=== PATIENT | male | born 1995 | race Caucasian/White ===

== ENCOUNTER 2018-08-10 20:05 | Emergency (ER) | payer BC ==
--- NOTE | 2018-08-10 20:21 | ER Report ---
History and Physical Time Seen By MD: 20:21 Hx. of Stated Complaint: PATIENT WAS PLAYING FLAG FOOTBALL, WENT TO CATCH BALL AND CAUGHT IT WITH TIPS OF LEFT HAND JAMMING THEM AGAINST BALL. HPI/ROS CHIEF COMPLAINT: Hand injury HISTORY OF PRESENT ILLNESS: This is a 22-year-old male who presents to emergency department for a hand injury. Patient states that he was playing flight football just prior to arrival when he went to catch the ball and jammed his left index finger and at the ball. States he's had pain in the finger down in the palm since. No other deformities small amount of swelling. He states he has injured this finger before however is not needed surgery. CMS intact. No other complaints. Denies hitting his head. REVIEW OF SYSTEMS: Respiratory: No cough, no dyspnea. Cardiovascular: No chest pain, no palpitations. Gastrointestinal: No vomiting, no abdominal pain. Musculoskeletal: As above. Allergies: Coded Allergies: No Known Drug Allergies (Unverified , 08/10/18) Past Medical/Surgical History Patient has a past medical and surgical history of was some tooth extraction, hypertension, does not take medications, left knee surgery, right hand fracture. Reviewed Nurses Notes: Yes Constitutional Vital Sign - Last 24 Hours 08/10/18 20:12 Temp 98.9 Pulse 111 Resp 16 B/P (MAP) 168/89 Pulse Ox 92 O2 Delivery Room Air Physical Exam General Appearance: The patient is alert, has no immediate need for airway protection and no current signs of toxicity. Eyes: Pupils equal and round no injection. Respiratory: Chest is non tender, lungs are clear to auscultation. Cardiac: regular rate and rhythm. Gastrointestinal: Abdomen is soft and non tender, no masses, bowel sounds normal. Musculoskeletal: Neck: Neck is supple and non tender. Extremities Examination of the Left hand reveals no acute deformity. The patient is able to give a thumbs up sign, is able to make an okay sign, and is able to AB duct the fingers. Sensation is intact over the dorsal 1st web space, the volar aspect of the 2nd finger, and the volar aspect of the 5th finger. Capillary refill is brisk. Pain to the left index finger from the DIP into the palm. Skin: No rashes or lesions. DIFFERENTIAL DIAGNOSIS: After history and physical exam differential diagnosis was considered for contusion, fracture, dislocation. Medical Decision Making EKG/Imaging Imaging PATIENT NAME: Ed REEDER: 1995 MR: [id number] V: [id number] EXAM DATE: ORDERING PHYSICIAN: ISIAH ZUNIGA TECHNOLOGIST: Location: [facility] Patient: Ed Flores : 1995 Visit/Account:[id number] Date of Sevice: 08/10/2018 INDICATION: injured left index finger, pain into palm. DATE: 08/10/2018 9:55 PM. TECHNIQUE: HAND COMPLETE LEFT COMPARISON: None FINDINGS: Bony alignment is normal. No evidence of fracture or dislocation. IMPRESSION: No acute osseous abnormality. Report Dictated By: Juan Ma MD at 08/10/2018 9:55 PM Report E-Signed By: Juan Ma MD at 08/10/2018 9:56 PM WSN:[id number] ED Course/Re-evaluation ED Course The patient was admitted to room. A history and physical obtained. Differential diagnoses were considered. X-ray negative for any acute ST segment normality however I am concerned might be a small avulsion fracture I will have the patient follow-up with referral. Questionable small avulsion fx at the palmar side of the PIP joint of the middle phalanx, I did review this with the patient, I did splint the finger. He was instructed to keep the splint on until he follow up with Ortho. Take Ibuprofen or Tylenol as needed. He expressed understanding and was discharged home. Decision to Disposition Date: Aug 10, 2018 Decision to Disposition Time: 21:58 Depart Departure Latest Vital Signs Vital Signs Date Time Temp Pulse Resp B/P (MAP) Pulse Ox O2 Delivery O2 Flow Rate FiO2 08/10/18 20:12 98.9 111 16 168/89 92 Room Air Impression: Primary Impression: Injury of left index finger Condition: Improved Disposition: HOME OR SELF-CARE Referrals: JOANIE AGUIRRE MD, TIMOTHY C MD 5 Days JESSA BREWER MD 5 Days Patient Instructions: Finger Fracture (ED) Additional Instructions: Keep the splint on until you follow up with Ortho. You may remove it to wash, otherwise please keep it on. You can take Ibuprofen or Tylenol as needed for pain. Drink plenty of water. Get plenty of rest. Return to the ED for any other concerns or worsening symptoms. Problem Qualifiers Primary Impression: Injury of left index finger Encounter type: initial encounter Qualified Codes: S69.92XA - Unspecified injury of left wrist, hand and finger(s), initial encounter ISIAH ZUNIGAP-BC Aug 10, 2018 20:21
--- NOTE | 2018-08-10 21:59 | RADIOLOGY IMAGING REPORT ---
[place] [facility] [place] NAME: Ed Flores : 1995 MR: [id number] V: [id number] EXAM DATE: ORDERING PHYSICIAN: ISIAH ZUNIGA TECHNOLOGIST: Location: [facility] [place] Patient: Ed Flores : 1995 Visit/Account:[id number] Date of Sevice: 08/10/2018 INDICATION: injured left index finger, pain into palm. DATE: 08/10/2018 9:55 PM. TECHNIQUE: HAND COMPLETE LEFT COMPARISON: None FINDINGS: Bony alignment is normal. No evidence of fracture or dislocation. IMPRESSION: No acute osseous abnormality. Report Dictated By: Juan Ma MD at 08/10/2018 9:55 PM Report E-Signed By: Juan Ma MD at 08/10/2018 9:56 PM WSN:[id number]
[2018-08-10 22:24] VITALS: BP 153/94
== END 2018-08-10 22:24 | disposition home or self-care (01) ==
LOC: ER 20:26
DX: S61.203A Unspecified open wound of left middle finger without damage to nail, initial encounter (principal)
CPT/HCPCS: 99283